=== PATIENT | female | born 1955 | race Caucasian/White ===

== ENCOUNTER 2023-08-19 11:16 | Emergency (ER) | payer MEDICARE, BC ==
[~2023-08-19] VITALS: Ht 154.9 cm; Wt 89.4 kg
[2023-08-19] MEDS ORDERED: CLINDAMYCIN HCL 150 MG CAPSULE ONE (11:48)
[2023-08-19] MEDS: CLINDAMYCIN HCL 150 MG CAPSULE PO ONE (11:50)
[2023-08-19] MEDS ORDERED: CLIN300C12 PO (11:51)
[2023-08-19 12:18] VITALS: BP 163/64; TEMP 98.2; O2SAT 97
== END 2023-08-19 12:18 | disposition home or self-care (01) ==
LOC: ER 11:16
DX: L03.116 Cellulitis of left lower limb (principal); L97.921 Non-pressure chronic ulcer of unspecified part of left lower leg limited to breakdown of skin; I87.2 Venous insufficiency (chronic) (peripheral); I10 Essential (primary) hypertension; E78.5 Hyperlipidemia, unspecified
CPT/HCPCS: 99283; A6403